=== PATIENT | female | born 1985 | race African-American/Black ===

== ENCOUNTER 2017-06-05 19:20 | Emergency (ER) | payer OTHER ==
[2017-06-05] MEDS ORDERED: DEXAMETHASONE SOD PHOSPHATE 10 MG/1 ML VIAL IVPB ONE (19:43)
--- NOTE | 2017-06-05 19:43 | PDOC ---
History of Present Illness - General History Source: Patient Exam Limitations: No Limitations - History of Present Illness Initial Comments: 06/05/17 19:56 The patient is a 31 year old female, with no significant past medical history, who presents to the emergency department status post an allergic reaction from a latex condom. The patient reports that this afternoon around 2:30pm she began to feel tightness and swelling in her throat. She denies itching, lip or tongue swelling, and shortness of breath. She denies wheezing, rash, and fever. She denies any modifying factors. Patient reports that she does not have an Epipen at home. She states that she took fexofenadine prior to arrival. Allergies:Latex <Merle Aggarwal - Last Filed: 06/05/17 19:56> - General History Source: Patient Exam Limitations: No Limitations <Shruti Mendoza - Last Filed: 06/05/17 21:26> - General Chief Complaint: Allergic Reaction Stated Complaint: THROAT SWELLING Time Seen by Provider: 06/05/17 19:41 Past History <Merle Aggarwal - Last Filed: 06/05/17 19:56> <Shruti Mendoza - Last Filed: 06/05/17 21:26> - Past Medical History Allergies/Adverse Reactions: Allergies Allergy/AdvReac Type Severity Reaction Status Date / Time latex Allergy Severe Swelling Verified 06/05/17 19:40 Home Medications: Ambulatory Orders Epinephrine (Epi-Pen 0.3MG) [Epipen 0.3MG -] 0.3 mg IM ASDIR #2 pens 06/05/17 Fexofenadine HCl 360 mg PO ONCE 06/05/17 Prednisone [Deltasone] 20 mg PO BID #6 tablet 06/05/17 Review of Systems - Review of Systems Able to Perform ROS?: Yes Comments:: 06/05/17 19:56 GENERAL/CONSTITUTIONAL: No fever or chills. No weakness. HEAD, EYES, EARS, NOSE AND THROAT: +Throat swelling and tightness No change in vision. No ear pain or discharge. GASTROINTESTINAL: No nausea, vomiting, diarrhea or constipation. GENITOURINARY: No dysuria, frequency, or change in urination. CARDIOVASCULAR: No chest pain or shortness of breath. RESPIRATORY: No cough, wheezing, or hemoptysis. MUSCULOSKELETAL: No joint or muscle swelling or pain. No neck or back pain. SKIN: No rash NEUROLOGIC: No headache, vertigo, loss of consciousness, or change in strength/ sensation. ENDOCRINE: No increased thirst. No abnormal weight change. HEMATOLOGIC/LYMPHATIC: No anemia, easy bleeding, or history of blood clots. ALLERGIC/IMMUNOLOGIC: +Allergic reaction <Merle Aggarwal - Last Filed: 06/05/17 19:56> *Physical Exam - Physical Exam Comments: 06/05/17 19:58 GENERAL: Awake, alert, and fully oriented, in no acute distress HEAD: No signs of trauma EYES: PERRLA, EOMI, sclera anicteric, conjunctiva clear ENT: +Mild uvular edema No face, no lip, no tongue swelling. Auricles normal inspection, nares patent, Moist mucosa NECK: Normal ROM, supple, no lymphadenopathy, JVD, or masses LUNGS: Breath sounds equal, clear to auscultation bilaterally. No wheezes, no stridor, and no crackles HEART: Regular rate and rhythm, normal S1 and S2, no murmurs, rubs or gallops ABDOMEN: Soft, nontender, normoactive bowel sounds. No guarding, no rebound. No masses EXTREMITIES: Normal range of motion, no edema. No clubbing or cyanosis. No cords, erythema, or tenderness NEUROLOGICAL: alert and oriented X3 SKIN: Warm, Dry, normal turgor, no rashes or lesions noted. <Merle Aggarwal - Last Filed: 06/05/17 19:56> ED Treatment Course - Medications Given in the ED: ED Medications Discontinued Medications Generic Name Dose Route Start Last Admin Trade Name Mu PRN Reason Stop Dose Admin Epinephrine HCl 0.3 mg 06/05/17 19:44 06/05/17 19:50 Epipen 0.3mg - IM 06/05/17 19:45 0.3 mg ONCE ONE Administration <Merle Aggarwal - Last Filed: 06/05/17 19:56> Medical Decision Making - Medical Decision Making 06/05/17 19:41 31 yo F with h/o allergies to latex here with allergic reaction after exposure to latex condom. pt feels throat swelling and fullness. no itching. no lip or tongue swelling. no sob. no wheezing. no rash. has had this happen before. no mod factors. noted symptoms about 45 minutes after the exposure. has had similar in the past. no prior anaphylaxis, no prior intubation. does not have an epe pen at home. took fexofenadine to relieve syxs. 06/05/17 19:43 plan treat with iv decardron, benadryl, and pepcid. 06/05/17 21:20 pt feeling better. famil her to take her home. dev dc with epe pen, and steroids for 3 days. <Shruti Mendoza - Last Filed: 06/05/17 21:26> *DC/Admit/Observation/Transfer - Attestations Scribe Attestion: 06/05/17 19:58 Documentation prepared by VICTORIANO Jackson, acting as medical unit secretary for Shruti Mendoza MD. <Merle Aggarwal - Last Filed: 06/05/17 19:56> - Discharge Dispostion Admit: No <Shruti Mendoza - Last Filed: 06/05/17 21:26> Diagnosis at time of Disposition: Allergic reaction - Discharge Dispostion Disposition: HOME Condition at time of disposition: Improved - Prescriptions Prescriptions: Prednisone [Deltasone] 20 mg PO BID #6 tablet Epinephrine (Epi-Pen 0.3MG) [Epipen 0.3MG -] 0.3 mg IM ASDIR #2 pens - Patient Instructions Printed Discharge Instructions: Treating Latex Allergy Additional Instructions: use epe pen in your thigh muscle as needed x one for severe allergic reaction. you should have it with you at all times. then seek emergency care immediately. take benadryl 25 mg every 6 hours as needed for itching or sense of throat fullness or shortness of breath. take prednisone 20 mg twice daily x 3 days starting tomorrow 06/06/17. return for recurrent or worsening symtpoms. you should avoid all contact with latex.
[2017-06-05] MEDS ORDERED: FAMOTIDINE 20 MG/50 ML IVPB 50 ML IVPB ONE ×2 (19:44→19:47)
[2017-06-05] MEDS ORDERED: EPINEPHrine 1:1,000 0.3 MG/0.3 ML SYR IM ONE (19:44)
[2017-06-05] MEDS ORDERED: EPINEPHrine/PF 1 MG/1 ML (1:1,000) AMPULE ONE (19:47)
[2017-06-05] MEDS ORDERED: DEXAMETHASONE SOD PHOSPHATE 10 MG/1 ML VIAL ONE (19:48)
[2017-06-05 20:59] VITALS: TEMP 98.6; BMI 27.9
[2017-06-05 21:18] VITALS: BP 126/90; PULSE 96
== END 2017-06-05 22:04 | disposition home or self-care (01) ==
LOC: FER 19:20
PROC: 3E0333Z Introduction of Anti-inflammatory into Peripheral Vein, Percutaneous Approach (ICD-10-PCS; principal; 2017-06-05)
PROC: 3E033GC Introduction of Other Therapeutic Substance into Peripheral Vein, Percutaneous Approach (ICD-10-PCS; 2017-06-05)
PROC: 3E0233Z Introduction of Anti-inflammatory into Muscle, Percutaneous Approach (ICD-10-PCS; 2017-06-05)
DX: T65.81 Toxic effect of latex (principal); J39.2 Other diseases of pharynx; Y92.89 Other specified places as the place of occurrence of the external cause
CPT/HCPCS: 96372; 96374; 96375; 99283-25